=== PATIENT | male | born 1990 | race Caucasian/White ===

== ENCOUNTER 2017-06-03 13:34 | Outpatient (CLI) | payer OTHER | END 2017-06-03 13:45 | disposition home or self-care (01) | LOC: LAB 13:34 | DX: R50.9 Fever, unspecified (principal) ==

== ENCOUNTER → 2017-06-03 | Outpatient (CLI) | payer OTHER ==
[~2017-06-03] VITALS: Ht 152.4 cm; Wt 68.0 kg
[~2017-06-03] MED LIST: PREVACID30 MG PO
== END | disposition home or self-care (01) ==
LOC: PPHC 11:40
DX: B34.9 Viral infection, unspecified (principal)

== ENCOUNTER 2021-01-30 08:41 | Outpatient (CLI) | payer OTHER | END 2021-01-30 08:51 | disposition home or self-care (01) | LOC: TOM 08:41 | DX: M25.511 Pain in right shoulder (principal); R10.84 Generalized abdominal pain; K57.90 Diverticulosis of intestine, part unspecified, without perforation or abscess without bleeding ==